=== PATIENT | male | born 1960 | race Caucasian/White ===

== ENCOUNTER 2016-09-04 18:05 | Emergency (ER) | payer OTHER ==
[2016-09-04 18:27] VITALS: BP 124/74
[2016-09-04] MEDS ORDERED: Tetracaine HCl/PF 0.5% 4 ML Bottle EYELF ONE (19:20)
--- NOTE | 2016-09-04 19:43 | EDM.PDOC ---
ED HPI GENERAL MEDICAL PROBLEM - General Chief Complaint: Eye Problems Stated Complaint: SCRATCHED CORNEA Time Seen by Provider: 09/04/16 19:17 Source of Information: Reports: Patient History Limitations: Reports: No Limitations - History of Present Illness INITIAL COMMENTS - FREE TEXT/NARRATIVE: This patient comes in for an injury to her left thigh. He was doing some woodcutting and he had some kind of the safety glasses on but a chip or dust or something got in his left eye that happened a few hours ago and he's having increasing pain from it. It doesn't seem to be affecting his vision however except has a lot of photophobia. Left Eye Pain Score (Numeric/FACES): 7 - Related Data Allergies Allergy/AdvReac Type Severity Reaction Status Date / Time No Known Allergies Allergy Verified 09/04/16 18:33 Home Meds: Home Meds Rosuvastatin [Crestor] 10 mg PO BEDTIME 09/04/16 [History] Past Medical History Cardiovascular History: Reports: High Cholesterol Musculoskeletal History: Reports: Fracture - Past Surgical History HEENT Surgical History: Reports: LASIK Social & Family History - Tobacco Use Smoking Status *Q: Never Smoker - Caffeine Use Caffeine Use: Reports: Coffee - Recreational Drug Use Recreational Drug Use: No ED ROS GENERAL - Review of Systems Review Of Systems: ROS reveals no pertinent complaints other than HPI. ED EXAM GENERAL W FULL EYE - Physical Exam Exam: See Below Exam Limited By: No Limitations General Appearance: Alert, WD/WN, Mild Distress Visual Acuity (R) 20/: 20 Visual Acuity (L) 20/: 20 Eyelids: Bilateral: Normal Appearance Conjunctiva & Sclera: Left: Injected Cornea Exam: Left: Corneal Abrasion (A small abrasion approximately 1/2-1 mm in diameter on the lateral margin of the cornea at about the 3:00 position.), Examined with Flourescein Extraocular Movements: Bilateral: Intact Pupils: Normal Accommodation Pupillary Reaction: Bilateral: Brisk Anterior Chamber: Bilateral: Normal Appearance (And he) Course - Vital Signs Last Recorded V/S: Last Vital Signs Temp 36.8 C 09/04/16 18:30 Pulse 98 09/04/16 18:30 Resp 14 09/04/16 18:30 BP 124/74 09/04/16 18:30 Pulse Ox 95 09/04/16 18:30 - Orders/Labs/Meds Meds: Medications Discontinued Medications Generic Name Dose Route Start Last Admin Trade Name Bernardo PRN Reason Stop Dose Admin Tetracaine HCl 1 ml 09/04/16 19:20 09/04/16 19:24 Tetracaine 0.5% Steri-Unit Zoraida EYELF 09/04/16 19:21 5 drop ASDIRECTED ONE Administration - Re-Assessments/Exams Free Text/Narrative Re-Assessment/Exam: 09/04/16 19:40 The left eye was examined after instilling tetracaine drops followed by a forcing staining. There was a small abrasion approximately 1/2-1 mm diameter at the 3:00 position along the for lateral margin of the left cornea. The eye was then flushed with saline examined it closely eyelids were everted there was no foreign body seen. Tetracaine was removed from the room. Departure - Departure Time of Disposition: 19:41 Disposition: Home, Self-Care 01 Condition: fair Clinical Impression: Corneal abrasion - Discharge Information Forms: ED Department Discharge Additional Instructions: Use the gentamicin antibiotic drops as directed during the day. At night you may use the erythromycin ointment. for pain use the Narco 5/325, #12 tablets, one or 2 every 4 hours as needed for pain. This medication can cause sedation and impair driving and operating machinery. Corneal abrasions heal rapidly within about 2 or 3 days. If you feel like it's getting worse or at any time your vision seems to be decreasing then seek care immediately
== END 2016-09-04 19:56 | disposition home or self-care (01) ==
LOC: JP.ED 18:05
DX: S05.02XA Injury of conjunctiva and corneal abrasion without foreign body, left eye, initial encounter (principal); X58.XXXA Exposure to other specified factors, initial encounter
CPT/HCPCS: 99283; A9270